=== PATIENT | female | born 1955 | race Caucasian/White ===

== ENCOUNTER 2016-09-25 09:00 | Outpatient (CLI) | payer OTHER | END 2016-09-25 09:01 | disposition home or self-care (01) | DX: Z12.31 Encounter for screening mammogram for malignant neoplasm of breast (principal) ==

== ENCOUNTER 2016-09-25 09:04 | Outpatient (CLI) | payer OTHER | END 2016-09-25 09:05 | disposition home or self-care (01) | DX: Z13.820 Encounter for screening for osteoporosis (principal) ==

== ENCOUNTER 2017-12-19 20:04 | Emergency (ER) | payer OTHER ==
[2017-12-19 20:28] LABS: BASOPHILS # (AUTO) 0.1 10^3/uL (0.0-0.1); BASOPHILS % (AUTO) 0.9 %; EOSINOPHILS # (AUTO) 0.5 10^3/uL (0.0-0.7); EOSINOPHILS % (AUTO) 5.3 %; HGB - HEMOGLOBIN 12.7 g/dL (12.0-16.0); LYMPHOCYTES # (AUTO) 2.7 10^3/uL (1.5-3.5); LYMPHOCYTES % (AUTO) 31.4 %; MEAN CORPUSCULAR HEMOGLOBIN 26.6 pg (27.0-31.0); MEAN CORPUSCULAR HGB CONC 32.3 g/dL (32.0-36.0); MEAN CORPUSCULAR VOLUME 82.3 fL (81.0-99.0); MEAN PLATELET VOLUME 7.7 fL (7.9-10.8); MONOCYTES # (AUTO) 0.6 10^3/uL (0.0-1.0); MONOCYTES % (AUTO) 6.8 %; NEUTROPHILS # (AUTO) 4.8 10^3/uL (1.5-6.6); NEUTROPHILS % (AUTO) 55.6 %; PLT - PLATELET COUNT 399 10^3/uL (130-450); RED BLOOD COUNT 4.77 10^6/uL (4.20-5.40); RED CELL DISTRIBUTION WIDTH 14.7 % (12.0-15.0); WHITE BLOOD COUNT 8.5 x10^3/uL (4.8-10.8)
[2017-12-19 20:40] LABS: ALBUMIN 3.5 g/dL (3.2-5.5); BILIRUBIN,TOTAL 0.4 mg/dL (0.2-1.0); CALCIUM 9.9 mg/dL (8.5-10.3); CREATININE 0.9 mg/dL (0.4-1.0); TOTAL PROTEIN 6.9 g/dL (6.7-8.2)
--- NOTE | 2017-12-19 21:51 | XRAY Report ---
Procedure Date: 12/19/2017 Accession Number: [id number] / [id number] Procedure: XR - Chest 2 View X-Ray CPT Code: 80360 FULL RESULT: EXAM: CHEST RADIOGRAPHY EXAM DATE: 12/19/2017 08:48 PM. CLINICAL HISTORY: Intermittent chest pain and soa. COMPARISON: 04/22/11. TECHNIQUE: 2 views. FINDINGS: Lungs/Pleura: No dense consolidation. No large effusion or pneumothorax. No pulmonary edema. Mediastinum: Heart and mediastinal contours are stable. Tortuous aorta. Other: None. IMPRESSION: No interval change. No acute radiographic pulmonary abnormalities. RADIA
[2017-12-19 21:57] VITALS: BP 140/89
--- NOTE | 2017-12-19 22:04 | ED Physician Documentation ---
PD HPI CHEST PAIN - Stated complaint Stated Complaint: CHEST PAIN - Chief complaint Chief Complaint: Cardiac - History obtained from History obtained from: Patient - History of Present Illness Timing - onset: Today Timing - onset during: Rest Timing - details: Intermittant Quality: Sharp Location: Substernal Worsened by: Palpation, Position Associated symptoms: Diaphoresis. No: Shortness of air Similar symptoms before: Has not had sx before Recently seen: Not recently seen - Additional information Additional information: Patient is a 62 year old female who is presenting to the emergency department for sternal chest pain. patient states that for the last few days she has been working on a few projects and has been cutting things and lifting things. patient states that she had sternal chest pain today. it is worse with palpation. Patient states that she just wanted to get an ekg to make sure everything looked ok. Review of Systems Constitutional: denies: Fever, Chills Throat: denies: Sore throat Cardiac: reports: Chest pain / pressure Respiratory: denies: Dyspnea, Cough, Wheezing GI: reports: Nausea. denies: Vomiting, Constipation, Diarrhea PD PAST MEDICAL HISTORY - Past Medical History Past Medical History: Yes Respiratory: Asthma - Past Surgical History Past Surgical History: Yes HEENT: Tonsil/Adenoidectomy - Allergies Allergies/Adverse Reactions: Allergies Allergy/AdvReac Type Severity Reaction Status Date / Time No Known Drug Allergies Allergy Verified 12/19/17 20:09 - Social History Does the pt smoke?: No Smoking Status: Never smoker Does the pt drink ETOH?: No Does the pt have substance abuse?: No - Immunizations Immunizations are current?: Yes - POLST Patient has POLST: No PD ED PE NORMAL - Vitals Vital signs reviewed: Yes - General General: Alert and oriented X 3, No acute distress - HEENT HEENT: Atraumatic - Neck Neck: Supple, no meningeal sign - Cardiac Cardiac: RRR, No murmur, No gallop - Respiratory Respiratory: No respiratory distress, Clear bilaterally - Abdomen Abdomen: Soft - Derm Derm: Normal color, Warm and dry, No rash - Extremities Extremities: No deformity - Neuro Neuro: Alert and oriented X 3 Eye Opening: Spontaneous Motor: Obeys Commands Verbal: Oriented GCS Score: 15 PD ED PE EXPANDED - Cardiac Cardiac: Chest wall TTP (tenderness to palpation of sternal region) Results - Vitals Vitals: Vital Signs - 24 hr 12/19/17 12/19/17 20:06 21:52 Temperature 36.6 C Heart Rate 90 87 Respiratory 18 18 Rate Blood Pressure 162/86 H 140/89 H O2 Saturation 98 97 Oxygen O2 Source Room air - EKG (time done) 2010 Rate: Rate (enter#) (94) Rhythm: NSR [place]: Normal Intervals: Normal MS QRS: Normal Ischemia: Normal ST segments Compare to prior EKG: Old EKG unavailable - Labs Labs: Laboratory Tests 12/19/17 12/19/17 12/19/17 20:21 20:21 20:21 WBC 8.5 RBC 4.77 Hgb 12.7 Hct 39.3 MCV 82.3 MCH 26.6 L MCHC 32.3 RDW 14.7 Plt Count 399 MPV 7.7 L Neut # (Auto) 4.8 Lymph # (Auto) 2.7 [place] # (Auto) 0.6 Eos # (Auto) 0.5 Baso # (Auto) 0.1 Absolute Nucleated RBC 0.01 Nucleated RBC % 0.1 Sodium 136 Potassium 3.5 Chloride 100 L Carbon Dioxide 28 Anion Gap 8.0 BUN 17 Creatinine 0.9 Estimated GFR (MDRD) 64 L Glucose 153 H Calcium 9.9 Total Bilirubin 0.4 AST 25 ALT 36 Alkaline Phosphatase 50 Troponin I < 0.04 Total Protein 6.9 Albumin 3.5 Globulin 3.4 Albumin/Globulin Ratio 1.0 Lipase 27 - Rads (name of study) chest x-ray Radiology: Final report received (normal) PD MEDICAL DECISION MAKING - ED course Complexity details: reviewed old records, reviewed results, re-evaluated patient , considered differential, d/w patient, d/w family ED course: Patient was seen and evaluated at bedside. ekg had already been performed and was normal sinus. labs and chest x-ray were also within normal limits. patient was well appearing and in no distress. Patient stated that she did not need any pain medication at this time. patient's ekg was reviewed with her. Patient required no further work up and was stable for discharge with outpatient follow up. - Sepsis Event Vital Signs: Vital Signs - 24 hr 12/19/17 12/19/17 20:06 21:52 Temperature 36.6 C Heart Rate 90 87 Respiratory 18 18 Rate Blood Pressure 162/86 H 140/89 H O2 Saturation 98 97 Oxygen O2 Source Room air Departure - Departure Disposition: Home, Self Care Clinical Impression: Chest wall pain Condition: Good Instructions: ED Strain Chest Wall Follow-Up: Mathieu Wiley MD [Primary Care Provider] - Comments: Your diagnostics today were within normal limits. there were no abnormalities on your blood work or your ekg. you should follow up with your doctor if your symptoms persist. you may return to the emergency department at any time for new, worsening or uncontrollable symptoms. Discharge Date/Time: 12/19/17 22:22
== END 2017-12-19 22:22 | disposition home or self-care (01) ==
LOC: ED 20:04
DX: R07.89 Other chest pain (principal)
CPT/HCPCS: 36415; 71046; 80053; 83690; 84484; 85025; 93005; 99283